=== PATIENT | female | born 1935 | race Caucasian/White ===

== ENCOUNTER 2022-11-26 23:59 | Observation (INO) | payer MEDICARE, SELFPAY ==
[2022-11-27] VITALS (31 sets, daily range): BP systolic 151–211; BP diastolic 80–141; PULSE 70–101; RESP 20–28; TEMP 36.7–36.9; O2SAT 90–100; BMI 22.8; BMI 23.1
--- NOTE | 2022-11-27 01:00 | XR_ITS ---
Patient: JESSY HOLMAN Facility:?[facility] Patient ID:[id number] Site Patient ID:?[id number] Study:?XRay-Chest PA AND lATERAL-11/27/2022 2:09:42 AM Ordering Physician:Radha Garibay Final Report: INDICATION: Shortness of breath TECHNIQUE: Chest radiograph 2 views COMPARISON: None FINDINGS: Mediastinum: A small to moderate sliding type gastric hiatal hernia (type IV) is present with an air-fluid level. The heart silhouette is normal in size and morphology. Lung: Both lungs are unremarkable in appearance. No sign of pleural effusion seen. No pneumothorax is identified. Bone and Soft tissue: Unremarkable for age. IMPRESSIONS: 1. No acute cardiopulmonary disease is seen. 2. A small to moderate sliding type gastric hiatal hernia (type IV) is present with an air-fluid level. Dictated by Chaz Menchaca MD @ 11/27/2022 2:14:02 AM Dictated by: Chaz Menchaca MD @ 11/27/2022 02:14:14 Signed by:?Chaz Menchaca MD @11/27/2022 2:14:14 AM (Electronic Signature)
[2022-11-27] MEDS: IPRAT-ALBUT 0.5-2.5 MG/3 ML NEB 1 NEB IH ×2 (01:51→08:35)
--- NOTE | 2022-11-27 03:31 | ED_ITS ---
HPI - SOB/Dyspnea General Date Seen: 11/27/22 Chief Complaint: Shortness of Breath/Dyspnea Stated Complaint: Shortness of Breath Time Seen by Provider: 11/27/22 00:03 Source: patient and family Mode of arrival: ambulatory History of Present Illness HPI Narrative: Patient is the 87-year-old female presents here for evaluation of shortness of breath, it has been for the last 4-6 hours, came on tonight. She her daughter who is with her, noted that she was breathing fast. They flown here from [place], to watch a granddaughter run track for [employer]. She normally is on oxygen 2 L, she is not wearing this continually day and night, this is for lung disease. She notes that she came urine because they thought they were at a lower altitude they thought they get by without the oxygen and did not bring it along. She denies any fevers chills she has no chest pain no nausea no vomiting eating and drinking otherwise well there is no leg swelling, no past history of DVTs pulmonary emboli and no significant cardiac history. MD elicited complaint: shortness of breath and cough Pertinent past history: COPD Onset (ago): hour(s) Timing: constant Severity: moderate Exacerbating factors: nothing Relieving factors: oxygen, bronchodilators and upright position Known history of: recurrent pneumonia Associated symptoms: cough Treatment prior to arrival: none Related Data Home oxygen amount: 2 liters Home Medications Medication Instructions Recorded Confirmed Blood Pressure Medication 11/27/22 UTI Prevention Medication 11/27/22 Allergies Allergy/AdvReac Type Severity Reaction Status Date / Time No Known Drug Allergies Allergy Verified 11/27/22 00:16 Review of Systems Status of ROS: Reports: 10 or more systems reviewed and unremarkable except as noted in History and below [facility] Social History Smoking Status: Never smoker Do you use any of these nicotine containing products: None Second hand tobacco smoke exposure: No How often do you have a drink containing alcohol: never AUDIT-C Alcohol total score: 0 Non-prescribed substance use: denies use Exam Narrative: Exam Narrative: Patient is seen in room 1, she is audibly wheezing, with a slightly elevated respiratory rate. Speaking to me however in full sentences, pupils are equal round react to light her TMs are normal oropharynx is normal cranial nerves 3-12 are normal, her chest shows good air entry bilaterally I do not hear any crackles, audible expiratory wheezes are noted throughout her precordium, heart sounds are distant and faint but S1-S2 is normal there is no S3-S4 clicks murmurs or gallops, abdomen is soft, there is no tenderness to palpation, no organomegaly, and bowel sounds are normal, her extremities show no pitting edema swelling, negative Homans sign she moves all extremities independently well, Const: Vital Signs, click to edit/add: Vital Signs - 24 hr 11/27/22 00:10 11/27/22 00:28 11/27/22 00:30 Temperature 98.1 F Pulse Rate 81 91 Pulse Rate [Pulse Oximeter] 89 Respiratory Rate 28 H Blood Pressure Blood Pressure [Ri ght Upper Arm] 185/110 H Pulse Oximetry 90 95 96 Oxygen Delivery Me thod Nasal Cannula Oxygen Flow Rate 2 11/27/22 00:32 11/27/22 00:45 11/27/22 01:00 Temperature Pulse Rate 88 89 79 Pulse Rate [Pulse Oximeter] Respiratory Rate Blood Pressure 166/99 H Blood Pressure [Ri ght Upper Arm] Pulse Oximetry 96 98 95 Oxygen Delivery Me thod Oxygen Flow Rate 11/27/22 01:02 11/27/22 01:15 11/27/22 01:30 Temperature Pulse Rate 83 80 78 Pulse Rate [Pulse Oximeter] Respiratory Rate Blood Pressure 175/102 H Blood Pressure [Ri ght Upper Arm] Pulse Oximetry 96 96 96 Oxygen Delivery Me thod Oxygen Flow Rate 11/27/22 01:34 11/27/22 01:48 11/27/22 01:51 Temperature Pulse Rate 82 87 81 Pulse Rate [Pulse Oximeter] Respiratory Rate Blood Pressure 211/130 H 197/108 H Blood Pressure [Ri ght Upper Arm] Pulse Oximetry 97 95 97 Oxygen Delivery Me thod Oxygen Flow Rate 11/27/22 02:00 11/27/22 02:02 11/27/22 02:15 Temperature Pulse Rate 79 78 71 Pulse Rate [Pulse Oximeter] Respiratory Rate Blood Pressure 154/141 H Blood Pressure [Ri ght Upper Arm] Pulse Oximetry 99 97 96 Oxygen Delivery Me thod Oxygen Flow Rate 11/27/22 02:30 11/27/22 02:32 11/27/22 02:45 Temperature Pulse Rate 70 78 80 Pulse Rate [Pulse Oximeter] Respiratory Rate Blood Pressure 151/80 H Blood Pressure [Ri ght Upper Arm] Pulse Oximetry 97 100 93 Oxygen Delivery Me thod Oxygen Flow Rate 11/27/22 03:00 11/27/22 03:01 11/27/22 03:30 Temperature Pulse Rate 86 80 75 Pulse Rate [Pulse Oximeter] Respiratory Rate Blood Pressure 182/100 H Blood Pressure [Ri ght Upper Arm] Pulse Oximetry 94 90 91 Oxygen Delivery Me thod Oxygen Flow Rate Course Course Hospital Course: I went back in and examined the patient again she was better, still has some wheezing, and on 2 L she is about 91-92%, I would recommend hospitalization now, for a COPD exacerbation she clearly is improved but given the fact she does not have oxygen here, she will need oxygen we will need to make a plan for her, nebulize treatments Solu-Medrol and Rocephin are also given to her. I did speak to from [facility] who agreed to admitted to the hospital. In talking to both the patient her daughter she is DNR DNI. Vital Signs Vital signs: Initial Vital Signs Temperature 98.1 F 11/27/22 00:10 Temperature Source Temporal Artery Scan 11/27/22 00:10 Pulse Rate 89 11/27/22 00:10 Respiratory Rate 28 H 11/27/22 00:10 Blood Pressure 185/110 H 11/27/22 00:10 Blood Pressure Mean 135 11/27/22 00:10 Blood Pressure Position Sitting 11/27/22 00:10 Pulse Oximetry 90 11/27/22 00:10 Vital Signs Temperature 98.1 F 11/27/22 00:10 Pulse Rate 89 11/27/22 00:10 Respiratory Rate 28 H 11/27/22 00:10 Blood Pressure 185/110 H 11/27/22 00:10 Pulse Oximetry 90 11/27/22 00:10 Temperature 98.1 F 11/27/22 00:10 Pulse Rate 75 11/27/22 03:30 Respiratory Rate 28 H 11/27/22 00:10 Blood Pressure 182/100 H 11/27/22 03:01 Pulse Oximetry 91 11/27/22 03:30 Oxygen Delivery Method 11/27/22 00:28 Oxygen Flow Rate 2 11/27/22 00:28 MDM - SOB/Dyspnea MDM Narrative Medical decision making narrative: Life-threatening differential diagnosis includes occluded COPD exacerbation, pulmonary edema, acute coronary syndromes, pulmonary embolism, pneumonia, and pneumothorax. Other differential diagnosis considerations include asthma, bronchitis as well as other etiologies Medical Records Attestation: I reviewed the patient's medical records. Lab Data Attestation: I reviewed the patient's lab results. Lab results narrative: I did review the lab tests, unfortunately [employer] was down, and there is were on hard copies, her total CO2 is elevated which makes me think that she has chronically CO2 retainer. Her D-dimer was elevated at 0.76, age adjusted would make her normal however. Imaging Data Chest x-ray: Attestation: I have reviewed the pertinent imaging results. My impression: No acute changes Radiologist's impression: Patient: JESSY HOLMAN Facility: [facility] Site : 1935 Study: XRay Chest PA AND lATERAL-11/27/2022 2:09:42 AM Ordering Physician: Jemma Garibay Final Report: INDICATION: Shortness of breath TECHNIQUE: Chest radiograph 2 views COMPARISON: None FINDINGS: Mediastinum: A small to moderate sliding type gastric hiatal hernia (type IV) is present with an air-fluid level. The heart silhouette is normal in size and morphology. Lung: Both lungs are unremarkable in appearance. No sign of pleural effusion seen. No pneumothorax is identified. Bone and Soft tissue: Unremarkable for age. IMPRESSIONS: 1. No acute cardiopulmonary disease is seen. 2. A small to moderate sliding type gastric hiatal hernia (type IV) is present with an air-fluid level. Dictated by Chaz Menchaca MD @ 11/27/2022 2:14:02 AM Dictated by: Chaz Menchaca MD @ 11/27/2022 02:14:14 (Electronic Signature) ECG Data ECG interpretation date: 11/27/22 Prior ECG tracings: not available for review Interpretation: Normal sinus rhythm, normal EKG with a ventricular rate of 83, QRS QT and RI intervals normal Discharge Plan Discharge Clinical Impression: Hypoxia, Acute exacerbation of chronic obstructive pulmonary disease Patient Disposition: Admitted As Inpatient Prescriptions: No Action Blood Pressure Medication Label Comments: Pt unsure of name/dosage UTI Prevention Medication Label Comments: Pt unsure of name/dosage Follow Up/Referrals: Provider,Not a Local [Primary Care Provider] -
[2022-11-27 03:42] LABS: PCR FLU A Negative PCR FLU A (Negative); PCR FLU B Negative PCR FLU B (Negative); PCR RSV Negative PCR RSV (Negative); SARS PCR* Negative SARS-CoV-2 (Negative)
[2022-11-27 03:42] LABS: Hematocrit 41.3 % (33.0-51.0); Hemoglobin* 13.2 gm/dL (12.0-16.0); Mean Corpuscular Volume 92 fL (80-100); White Blood Count* 6.47 K/uL (4.50-11.00)
[2022-11-27 03:43] LABS: Basophils Percent Auto 0.6 % (0.0-3.0); Eosinophils Percent Auto 4.5 % (0.0-7.0); Immature Granulocytes Pct Auto 0.2 %; Lymphocytes Percent Auto 24.6 % (20-44); Mean Corpuscular HGB Conc 32 gm/dL (32-36); Mean Corpuscular Hemoglobin 29 pg (26-34); Monocytes Percent Auto 9.9 % (0.0-11.0); Neutrophils Percent Auto 60.2 % (42.0-72.0); Platelet Count* 200 K/uL (140-440); Slide Review Reflex No
[2022-11-27 03:44] LABS: INR 0.96 (0.91-1.10); Partial Thromboplastin Time* 27 Seconds (23-33); Prothrombin Time 13.3 Seconds
[2022-11-27 03:48] LABS: D Dimer Quantitative* < 0.27 ug/ml (0.00-0.50)
[2022-11-27 03:50] LABS: Blood Urea Nitrogen* 23 mg/dL (7-30); Calcium* 8.8 mg/dL (8.4-10.6); Carbon Dioxide* 32 mmol/L (20-32); Chloride* 106 mmol/L (96-114); Creatinine* 0.6 mg/dL (0.5-1.5); Est. Creatinine Clearance* 34.23; Estimated Glomerular Filt Rate 87 ml/min; Glucose* 106 mg/dL (60-115); NT Pro B Type NatriureticPept* 58 pg/mL; Sodium* 141 mmol/L (135-149)
[2022-11-27] MEDS: cefTRIAXone 1 GM in 0.9 % SODIUM CHLORIDE Mini-bag 100 ML IVPB (03:50)
[2022-11-27] MEDS: ALBUTEROL SULFATE 2.5 MG/3 ML VIAL.NEB NEB (03:50)
[2022-11-27] MEDS: METHYLPREDNISOLONE SOD SUCC 62.5 MG/ML (125) 125 MG IVP (03:50)
[2022-11-27 03:51] LABS: Troponin I* < 0.01 ng/mL (0.01-0.04)
--- NOTE | 2022-11-27 03:54 | W.PC.EDHO ---
Primary Language: Preferred Language: Orientation Status: [x] Alert & Oriented [] Slight Confusion [] Known Dx Dementia Transfers By: [] Assist of 1 [x] Assist of 2 [] Lift Description of Symptoms ED Triage Present Problem Pt's daughter states pt c/o SOB and low oxygen Description that started approximately one hour ago when pt was asleep. Pt is normally on 2 LPM home oxygen via [place], but pt flew from [place] to [place] today and pt's family did not bring oxygen or pulse oximeter with. 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 Pt also has hx memory issues and antibiotic- resistant UTIs d/t buying antibiotics in [place] and not finishing the course, per daughter. Pt sats consistently 90% currently, but placed on 2 LPM for comfort. ED Triage Date of Onset of 11/27/22 Symptoms Oxygen Administration Pulse Oximetry 94 Pulse Oximetry 91 Pulse Oximetry 90 Pulse Oximetry 94 Pulse Oximetry 93 Pulse Oximetry 100 Pulse Oximetry 97 Pulse Oximetry 96 Pulse Oximetry 97 Pulse Oximetry 99 Pulse Oximetry 97 Pulse Oximetry 95 Pulse Oximetry 97 Pulse Oximetry 96 Pulse Oximetry 96 Pulse Oximetry 96 Pulse Oximetry 95 Pulse Oximetry 98 Pulse Oximetry 96 Pulse Oximetry 96 Pulse Oximetry 95 Pulse Oximetry 90 Oxygen Delivery Method Nasal Cannula Oxygen Flow Rate 2
--- NOTE | 2022-11-27 04:51 | P.IMCN_ITS ---
Date of Consult Consult date: 11/27/22 Primary Care Provider: Not a Local Provider Consult Narrative Narrative: Madison Davalos is a 87 year old female [facility] Social History Smoking Status: Never smoker Do you use any of these nicotine containing products: None Second hand tobacco smoke exposure: No How often do you have a drink containing alcohol: never AUDIT-C Alcohol total score: 0 Non-prescribed substance use: denies use Meds Home Medications and Allergies Home Medications Medication Instructions Recorded Confirmed Type folic acid .Route 11/27/22 History lisinopril 20 mg tablet mg 11/27/22 History mecobalamin (vitamin B12) 500 mcg mcg PO 11/27/22 History chewable tablet melatonin 1 mg tablet 1 mg PO DAILY 11/27/22 11/27/22 History mirabegron 25 mg tablet,extended mg PO 11/27/22 History release 24 hr (Myrbetriq) olopatadine 0.1 % eye drops drp 11/27/22 History Allergies Allergy/AdvReac Type Severity Reaction Status Date / Time No Known Drug Allergies Allergy Verified 11/27/22 00:16 Exam Const: Vital Signs, click to edit/add: Vital Signs - 24 hr 11/27/22 00:10 11/27/22 00:28 11/27/22 00:30 Temperature 98.1 F Pulse Rate 81 91 Pulse Rate [Pulse Oximeter] 89 Respiratory Rate 28 H Blood Pressure Blood Pressure [Ri ght Upper Arm] 185/110 H Pulse Oximetry 90 95 96 Oxygen Delivery Me thod Nasal Cannula Oxygen Flow Rate 2 11/27/22 00:32 11/27/22 00:45 11/27/22 01:00 Temperature Pulse Rate 88 89 79 Pulse Rate [Pulse Oximeter] Respiratory Rate Blood Pressure 166/99 H Blood Pressure [Ri ght Upper Arm] Pulse Oximetry 96 98 95 Oxygen Delivery Me thod Oxygen Flow Rate 11/27/22 01:02 11/27/22 01:15 11/27/22 01:30 Temperature Pulse Rate 83 80 78 Pulse Rate [Pulse Oximeter] Respiratory Rate Blood Pressure 175/102 H Blood Pressure [Ri ght Upper Arm] Pulse Oximetry 96 96 96 Oxygen Delivery Me thod Oxygen Flow Rate 11/27/22 01:34 11/27/22 01:48 11/27/22 01:51 Temperature Pulse Rate 82 87 81 Pulse Rate [Pulse Oximeter] Respiratory Rate Blood Pressure 211/130 H 197/108 H Blood Pressure [Ri ght Upper Arm] Pulse Oximetry 97 95 97 Oxygen Delivery Me thod Oxygen Flow Rate 11/27/22 02:00 11/27/22 02:02 11/27/22 02:15 Temperature Pulse Rate 79 78 71 Pulse Rate [Pulse Oximeter] Respiratory Rate Blood Pressure 154/141 H Blood Pressure [Ri ght Upper Arm] Pulse Oximetry 99 97 96 Oxygen Delivery Me thod Oxygen Flow Rate 11/27/22 02:30 11/27/22 02:32 11/27/22 02:45 Temperature Pulse Rate 70 78 80 Pulse Rate [Pulse Oximeter] Respiratory Rate Blood Pressure 151/80 H Blood Pressure [Ri ght Upper Arm] Pulse Oximetry 97 100 93 Oxygen Delivery Me thod Oxygen Flow Rate 11/27/22 03:00 11/27/22 03:01 11/27/22 03:30 Temperature Pulse Rate 86 80 75 Pulse Rate [Pulse Oximeter] Respiratory Rate Blood Pressure 182/100 H Blood Pressure [Ri ght Upper Arm] Pulse Oximetry 94 90 91 Oxygen Delivery Me thod Oxygen Flow Rate 11/27/22 03:49 11/27/22 01:16 11/27/22 01:16 Temperature Pulse Rate 80 Pulse Rate [Pulse Oximeter] Respiratory Rate 24 Blood Pressure Blood Pressure [Ri ght Upper Arm] Pulse Oximetry 94 91 91 Oxygen Delivery Me thod Nasal Cannula Oxygen Flow Rate 2 11/27/22 04:00 Temperature Pulse Rate 77 Pulse Rate [Pulse Oximeter] Respiratory Rate Blood Pressure Blood Pressure [Ri ght Upper Arm] Pulse Oximetry 99 Oxygen Delivery Me thod Oxygen Flow Rate Labs Labs: Short CBC 11/27/22 Range/Units 01:00 WBC 6.47 (4.50-11.00) K/uL Hgb 13.2 (12.0-16.0) gm/dL Hct 41.3 (33.0-51.0) % Plt Count 200 (140-440) K/uL BMP 11/27/22 01:00 Sodium 141 Potassium 4.0 Chloride 106 Carbon Dioxide 32 BUN 23 Creatinine 0.6 Glucose 106 Calcium 8.8 Cardiac Enzymes 11/27/22 Range/Units 01:00 Troponin I < 0.01 L (0.01-0.04) ng/mL Assessment and Plan Assessment and plan (1) Hypoxia: Status: Acute (2) Acute exacerbation of chronic obstructive pulmonary disease: Status: Acute Plan [facility] Hospitalist e[facility]ospital[facility] was contacted with request of consultation on Madison davalos for admission support Chief complaint: Shortness of breath HPI:87-year-old female with history of memory issues and COPD requiring 2 L of oxygen 08/05 who is visiting [place] for her granddaughter's school event. The details of COPD are not clear whether it is emphysema versus chronic bronchitis are bronchiectasis. She used to have recurrent pneumonias in the past. While moving from [place] to [place] she did not bring her oxygen as she thought she was moving from high altitude to a lower altitude. No fever or chills reported. She has been outdoor and it is cold outside although she did not stay in the cold for a long time. There is no nausea or vomiting. No fever or chills reported. No previous history of DVT, PE or any recent leg swelling. She does not use any inhalers currently. Upon presentation she was hypertensive, afebrile, requiring up to 2 L nasal cannula oxygen. WBCs did not show any elevated white count. D-dimers were normal. Troponin negative. BNP negative. Electrolytes normal. COVID RSV and influenza negative. EKG with normal sinus rhythm without acute ST-T wave changes concerning for ischemia. Chest x-ray without acute cardiopulmonary disease. Small to moderate sliding- type gastric hiatal hernia. Patient seems comfortable to me and denies any specific complaints. Most of the history is discussed with her daughter Alethea. In the ER she was given ceftriaxone, DuoNebs and Solu-Medrol. Home Medications: see EMR Pertinent Medical History: See EMR Pertinent Social History: See EMR Exam (performed via interactive video with assistance of bedside nurse; ): General: alert, cooperative, no acute distress HEENT: oral mucosa pink and moist without erythema Lungs: Scattered wheezes in bilateral lung mackenzie more on the right than left CV: regular rate and rhythm without loud murmur rub or gallop Ext: no pitting edema noted Skin: no rashes, bruises or lesions. Neuro:[alert, oriented x2, facial muscles grossly intact, moves all extremities without any significant focal deficit appreciated by nurse Labs and imaging were reviewed Assessment and Plan: Acute on chronic hypoxic respiratory failure ? COPD history with exacerbation Excessive wheezing Hypertension Influenza COVID and RSV negative. Chest x-ray reviewed. Continue with prednisone 40 mg daily. Ceftriaxone and Zithromax for COPD exacerbation. Oxygen support. Incentive spirometry. DuoNebs as needed. Continue lisinopril for hypertension. DVT prophylaxis: Lovenox, SCDs CODE STATUS: DNR/DNI IV fluids: None Diet: Regular Thank you for including [facility] in the patients care. This service is available for further assistance as requested by your care team by calling [phone].
[2022-11-27] MEDS: AZITHROMYCIN 250 MG TABLET 500 MG PO (05:04)
--- NOTE | 2022-11-27 05:37 | PC.NURSE ---
Admission@04--: Pt walked from w/c in [facility] to scale/br/bed without any dyspnea noted or stated with oxygen@2lpm via nc, oximetry upper 90s thus decreased to 1lpm now 93-95%, encouraged tcdb. Patient noted to have issues with memory/forgetful when recalling what state she's currently in by stating [place], and repeated 4x if she has to wear the pulse oximetry, otherwise pleasant/following commands, bed alarm on.
[2022-11-27] MEDS: predniSONE 20 MG TABLET 40 MG PO (08:35)
[2022-11-27] MEDS: SODIUM CHLORIDE 0.9 % (FLUSH) 10 ML SYRINGE 5 ML IVF (08:36)
[2022-11-27] MEDS: lisinopriL 20 MG TABLET PO (09:43)
--- NOTE | 2022-11-27 10:09 | RESP.RT ---
Patient is currently on room air and able to keep SAT at 94% with deep breathing exercises. Her SAT does drift down to 89-90% and is needed to be reminded to take deep breaths. She does well with the Nebs and should continue to use them.
--- NOTE | 2022-11-27 12:02 | PC.NURSE ---
Discharge: Patient pleasant, cooperative, and forgetful. Patient vitally stable, lungs with course crackles/expiratory wheezes, BS WNL, IV removed, catheter intact. Patient on 1 L of oxygen with sats in the low 90's. Patient 1 assist, walker, gb. Patient's daughter signed belongings sheet and discharge form. Patient left the floor by her own wheelchair with daughter, and belongings at 1158. To their flight home to [place].
--- NOTE | 2022-11-27 15:44 | PM.DS1 ---
DS: Providers Provider Time Seen by Provider: 10:00 Date Seen: 11/27/22 Date of admission: 11/27/22 04:12 Primary care physician: Not a Local Provider Admitting Clinician: Phoenix Easton MD Attending Physician on discharge: Nik Fontana MD Date of Discharge: 11/27/22 DS: Diagnosis Discharge Diagnosis (1) Hypoxia: Status: Acute (2) Acute exacerbation of chronic obstructive pulmonary disease: Status: Acute DS: Summary Hospital Course Hospital Course: 87-year-old woman from [place] is visiting her granddaughter here in [place], [place], with her daughter. Patient resides in a memory care unit in an assisted living setting with her . Ordinarily she utilizes oxygen at 1-2 L per minute via nasal cannula at bedtime. Does not ordinarily use oxygen during the day. Was doing well in her usual state of health throughout the day yesterday while attending in indoor track meet to watch her granddaughter run of 3 clonidine raise. All was well. Went back to the hotel room. When getting ready to go to bed she became more tachypneic. Her daughter who stayed in the hotel room with her brought into the emergency department for further assessment. Patient had mild hypoxemic respiratory failure when assessed emergency department. Low-flow oxygen at 1-2 liters/minute improved her saturations to the low to mid 90s. She was started on corticosteroids for COPD exacerbation. She did well overnight. Throughout this morning she has not required oxygen supplementation, and her oxygen saturations have maintained between 90 and 92% at rest and actually improved with any activity. She worked with our respiratory therapist throughout the morning. No need for her to require a portable oxygen concentrator for her travels back to [place] all today. Patient is discharged home with her daughter attending her. She will travel via airplane from [place] back to [place] later today. Status at Discharge Overall status at discharge: patient is back to baseline Time Spent with Patient Time attestation: Total time spent providing and/or coordinating discharge services: Time spent: Greater than 30 minutes Exam Narrative: Exam Narrative: Alert, oriented to self, place, time, situation. Friendly, cooperative, articulate. Mood and affect are congruent. Neck is supple. Midline trachea. Not utilizing accessory muscles of respiration. Fine end inspiratory rales bibasilarly, chronic. No wheezing or rhonchi. Heart tones with regular rhythm, normal S1-S2. Abdomen with active bowel sounds, soft, nontender. Independent transfer, station, gait. Const: Vital Signs, click to edit/add: Vital Signs - 24 hr 11/27/22 00:10 11/27/22 00:28 11/27/22 00:30 Temperature 98.1 F Pulse Rate 81 91 Pulse Rate [Left P ulse Oximeter] Pulse Rate [Pulse Oximeter] 89 Respiratory Rate 28 H Blood Pressure Blood Pressure [Le ft Arm] Blood Pressure [Ri ght Arm] Blood Pressure [Ri ght Upper Arm] 185/110 H Pulse Oximetry 90 95 96 Oxygen Delivery Me thod Nasal Cannula Oxygen Flow Rate 2 11/27/22 00:32 11/27/22 00:45 11/27/22 01:00 Temperature Pulse Rate 88 89 79 Pulse Rate [Left P ulse Oximeter] Pulse Rate [Pulse Oximeter] Respiratory Rate Blood Pressure 166/99 H Blood Pressure [Le ft Arm] Blood Pressure [Ri ght Arm] Blood Pressure [Ri ght Upper Arm] Pulse Oximetry 96 98 95 Oxygen Delivery Me thod Oxygen Flow Rate 11/27/22 01:02 11/27/22 01:15 11/27/22 01:30 Temperature Pulse Rate 83 80 78 Pulse Rate [Left P ulse Oximeter] Pulse Rate [Pulse Oximeter] Respiratory Rate Blood Pressure 175/102 H Blood Pressure [Le ft Arm] Blood Pressure [Ri ght Arm] Blood Pressure [Ri ght Upper Arm] Pulse Oximetry 96 96 96 Oxygen Delivery Me thod Oxygen Flow Rate 11/27/22 01:34 11/27/22 01:48 11/27/22 01:51 Temperature Pulse Rate 82 87 81 Pulse Rate [Left P ulse Oximeter] Pulse Rate [Pulse Oximeter] Respiratory Rate Blood Pressure 211/130 H 197/108 H Blood Pressure [Le ft Arm] Blood Pressure [Ri ght Arm] Blood Pressure [Ri ght Upper Arm] Pulse Oximetry 97 95 97 Oxygen Delivery Me thod Oxygen Flow Rate 11/27/22 02:00 11/27/22 02:02 11/27/22 02:15 Temperature Pulse Rate 79 78 71 Pulse Rate [Left P ulse Oximeter] Pulse Rate [Pulse Oximeter] Respiratory Rate Blood Pressure 154/141 H Blood Pressure [Le ft Arm] Blood Pressure [Ri ght Arm] Blood Pressure [Ri ght Upper Arm] Pulse Oximetry 99 97 96 Oxygen Delivery Me thod Oxygen Flow Rate 11/27/22 02:30 11/27/22 02:32 11/27/22 02:45 Temperature Pulse Rate 70 78 80 Pulse Rate [Left P ulse Oximeter] Pulse Rate [Pulse Oximeter] Respiratory Rate Blood Pressure 151/80 H Blood Pressure [Le ft Arm] Blood Pressure [Ri ght Arm] Blood Pressure [Ri ght Upper Arm] Pulse Oximetry 97 100 93 Oxygen Delivery Me thod Oxygen Flow Rate 11/27/22 03:00 11/27/22 03:01 11/27/22 03:30 Temperature Pulse Rate 86 80 75 Pulse Rate [Left P ulse Oximeter] Pulse Rate [Pulse Oximeter] Respiratory Rate Blood Pressure 182/100 H Blood Pressure [Le ft Arm] Blood Pressure [Ri ght Arm] Blood Pressure [Ri ght Upper Arm] Pulse Oximetry 94 90 91 Oxygen Delivery Me thod Oxygen Flow Rate 11/27/22 03:49 11/27/22 01:16 11/27/22 01:16 Temperature Pulse Rate 80 Pulse Rate [Left P ulse Oximeter] Pulse Rate [Pulse Oximeter] Respiratory Rate 24 Blood Pressure Blood Pressure [Le ft Arm] Blood Pressure [Ri ght Arm] Blood Pressure [Ri ght Upper Arm] Pulse Oximetry 94 91 91 Oxygen Delivery Me thod Nasal Cannula Oxygen Flow Rate 2 11/27/22 04:00 11/27/22 05:33 11/27/22 04:17 Temperature 98.1 F Pulse Rate 77 Pulse Rate [Left P ulse Oximeter] 82 Pulse Rate [Pulse Oximeter] Respiratory Rate 20 Blood Pressure Blood Pressure [Le ft Arm] 175/95 H Blood Pressure [Ri ght Arm] Blood Pressure [Ri ght Upper Arm] Pulse Oximetry 99 95 94 Oxygen Delivery Me thod Nasal Cannula Nasal Cannula Oxygen Flow Rate 1 1 11/27/22 05:44 11/27/22 06:15 11/27/22 07:00 Temperature 98.4 F Pulse Rate Pulse Rate [Left P ulse Oximeter] 89 Pulse Rate [Pulse Oximeter] Respiratory Rate 20 22 Blood Pressure Blood Pressure [Le ft Arm] 167/87 H Blood Pressure [Ri ght Arm] Blood Pressure [Ri ght Upper Arm] Pulse Oximetry 93 90 94 Oxygen Delivery Me thod Room Air Nasal Cannula Oxygen Flow Rate 1 11/27/22 07:00 11/27/22 07:00 11/27/22 11:16 Temperature 98.4 F Pulse Rate 77 Pulse Rate [Left P ulse Oximeter] 89 Pulse Rate [Pulse Oximeter] Respiratory Rate 22 22 22 Blood Pressure 182/100 H Blood Pressure [Le ft Arm] Blood Pressure [Ri ght Arm] Blood Pressure [Ri ght Upper Arm] Pulse Oximetry 94 Oxygen Delivery Me thod Nasal Cannula Oxygen Flow Rate 1 11/27/22 11:00 Temperature 98.4 F Pulse Rate Pulse Rate [Left P ulse Oximeter] 101 H Pulse Rate [Pulse Oximeter] Respiratory Rate 26 H Blood Pressure Blood Pressure [Le ft Arm] Blood Pressure [Ri ght Arm] 164/83 H Blood Pressure [Ri ght Upper Arm] Pulse Oximetry 92 Oxygen Delivery Me thod Nasal Cannula Oxygen Flow Rate 1 DS: Data Data Completed and Pending Labs on day of discharge: Labs from last 24 hours 11/27/22 11/27/22 11/27/22 03:38 01:00 01:00 WBC RBC Hgb Hct MCV MCH MCHC Plt Count Neut % (Auto) Lymph % (Auto) [place] % (Auto) Eos % (Auto) Baso % (Auto) Neut # (Auto) Lymph # (Auto) [place] # (Auto) Eos # (Auto) Baso # (Auto) INR 0.96 APTT 27 D-Dimer Quant (PE/DVT) < 0.27 Sodium 141 Potassium 4.0 Chloride 106 Carbon Dioxide 32 BUN 23 Creatinine 0.6 Estimated Creat Clear 34.23 Estimated GFR 87 Glucose 106 Calcium 8.8 Troponin I < 0.01 L NT-Pro-B Natriuret Pep 58 SARS-CoV-2 (PCR) Negative SARS-CoV-2 Influenza Type A (PCR) Negative PCR FLU A Influenza Type B (PCR) Negative PCR FLU B RSV (PCR) Negative PCR RSV 11/27/22 01:00 WBC 6.47 RBC 4.50 Hgb 13.2 Hct 41.3 MCV 92 MCH 29 MCHC 32 Plt Count 200 Neut % (Auto) 60.2 Lymph % (Auto) 24.6 [place] % (Auto) 9.9 Eos % (Auto) 4.5 Baso % (Auto) 0.6 Neut # (Auto) 3.90 Lymph # (Auto) 1.60 [place] # (Auto) 0.60 Eos # (Auto) 0.30 Baso # (Auto) 0.00 INR APTT D-Dimer Quant (PE/DVT) Sodium Potassium Chloride Carbon Dioxide BUN Creatinine Estimated Creat Clear Estimated GFR Glucose Calcium Troponin I NT-Pro-B Natriuret Pep SARS-CoV-2 (PCR) Influenza Type A (PCR) Influenza Type B (PCR) RSV (PCR) Discharge Plan Discharge Disposition: Home, Self-Care Date of Admission: 11/27/22 04:12 Attending Provider on Discharge: Nik Fontana Primary Care Provider: Provider,Not a Local Condition: Improved Anticipated Discharge Date/Time: 11/27/22 11:30 Discharge Medications: New prednisone 20 mg Tablet 40 mg PO DAILYWM 4 Days Qty: 8 0RF azithromycin 250 mg tablet 250 mg PO DAILY 4 Days Qty: 4 0RF Continued lisinopril 20 mg tablet 20 mg PO DAILY olopatadine 0.1 % drops 1 drp ophthalmic (eye) BID Myrbetriq 25 mg tablet extended release 24 hr 25 mg PO HS melatonin 1 mg tablet 1 mg PO HS folic acid 1 mg tablet 1 mg PO DAILY cyanocobalamin (vitamin B-12) 500 mcg tablet 500 mcg PO DAILY Discharge Orders: Discharge Order (Routine); Ordered 11/27/22 Ordered By: Nik Fontana Patient Education: Prednisone (By mouth), Azithromycin (By mouth), Air Travel With Oxygen (GEN), Hypoxia (GEN) Additional Instructions: 1. Follow-up with primary care physician in 3-7 days; 2. Return to clinic or hospital sooner if needed. Activity Level: Activity as Tolerated Discharge Diet: Regular Follow Up Appointments: Provider,Not a Local [Primary Care Provider] - (Patient needs to call and schedule a follow up appointment with primary care physician for 3-7 days after discharge.) Forms: [employer] Info Instructions
--- NOTE | 2022-11-27 15:52 | P.IMHP_ITS ---
Hospitalist- H&P: HPI History of Present Illness Time Seen by Provider: 08:30 Date Seen: 11/27/22 Chief complaint: Shortness of Breath Narrative: Madison Davalos is a 87-year-old woman from [place] visiting her granddaughter here in [place], [place], with her daughter.? Patient resides in a memory care unit in an assisted living setting with her .? Ordinarily she utilizes oxygen at 1-2 L per minute via nasal cannula at bedtime.? Does not ordinarily use oxygen during the day.? Was doing well in her usual state of health throughout the day yesterday while attending in indoor track meet to watch her granddaughter run a 3 killometer race.? All was well.? Went back to the hotel room.? When getting ready to go to bed she became more tachypneic.? Her daughter, who stayed in the hotel room with her, brought into the emergency department for further assessment.? Patient had mild hypoxemic respiratory failure when assessed emergency department.? Low-flow oxygen at 1-2 liters/minute improved her saturations to the low to mid 90s.? She was started on corticosteroids for COPD exacerbation. Patient is admitted for additional monitoring and intervention as warranted. Review of Systems Status of ROS: Reports: 10 or more systems reviewed and unremarkable except as noted in History and below Narrative: Does not ordinarily use oxygen throughout the day. Does utilize oxygen at 1-2 liters/minute via nasal cannula at bedtime. When making the trip from [place] to [place] she and her daughter thought that they did not need to bring the oxygen with her because of lower altitude in [place] compared to [place]. Evidently they live about 7,000 feet above sea level. No recent illness. Denies chest heaviness, pressure, tightness, or pain. When I am seeing her this morning she states she has no more dyspnea at rest. Acknowledges baseline dyspnea with exertion. Denies paroxysmal nocturnal dyspnea or orthopnea. Acknowledges baseline sense of weakness if she walks too far. Ordinarily uses a wheelchair for longer distances. Denies syncope or near-syncope. Denies nausea or vomiting. Denies palpitations or chest fluttering. Denies dysuria, urgency, frequency, hematuria. Denies diarrhea. Receives all of her healthcare in [place] where she resides. She is satisfied with the healthcare she receives. Unhesitatingly states she desires comfort measures only in the event of cardiopulmonary demise. Designates her daughter as her power of tank builder for health should that be required. [facility] Medical History Chronic hypoxemic respiratory failure Chronic obstructive pulmonary disease Cognitive impairment Essential hypertension Vitamin B12 deficiency Social History Smoking Status: Never smoker Do you use any of these nicotine containing products: None Second hand tobacco smoke exposure: No How often do you have a drink containing alcohol: never AUDIT-C Alcohol total score: 0 Non-prescribed substance use: denies use Caffeine: Yes Meds Home Medications and Allergies Home Medications Medication Instructions Recorded Confirmed Type cyanocobalamin (vitamin B-12) 500 500 mcg PO DAILY 11/27/22 11/27/22 History mcg tablet folic acid 1 mg tablet 1 mg PO DAILY 11/27/22 11/27/22 History lisinopril 20 mg tablet 20 mg PO DAILY 11/27/22 11/27/22 History melatonin 1 mg tablet 1 mg PO HS 11/27/22 11/27/22 History mirabegron 25 mg tablet,extended 25 mg PO HS 11/27/22 11/27/22 History release 24 hr (Myrbetriq) olopatadine 0.1 % eye drops 1 drp ophthalmic (eye) BID 11/27/22 11/27/22 History Allergies Allergy/AdvReac Type Severity Reaction Status Date / Time No Known Drug Allergies Allergy Verified 11/27/22 00:16 Exam Narrative: Exam Narrative: Appears comfortable and in no acute distress when I see her this morning. Initially receiving oxygen supplementation via nasal cannula at a rate of 2 liters/minute. We removed this and monitor her on room air. On room air she is able to maintain her saturations between 90 and 92% at rest. With exertion her saturations improved 96%. Alert, oriented to self, place, time, situation. Friendly, cooperative, articulate. Mood and affect are congruent. Neck is supple. Kyphosis. Lungs clear to auscultation save some end inspiratory rales bibasilarly. No wheezing or rhonchi. Heart tones with regular rhythm, normal S1-S2. Abdomen with active bowel sounds, soft, nontender. Independent transfer, station, and gait. No focal motor neurologic deficits. Skin is intact. Palpable pulses upper and lower extremities. Const: Vital Signs, click to edit/add: Vital Signs - 24 hr 11/27/22 00:10 11/27/22 00:28 11/27/22 00:30 Temperature 98.1 F Pulse Rate 81 91 Pulse Rate [Left P ulse Oximeter] Pulse Rate [Pulse Oximeter] 89 Respiratory Rate 28 H Blood Pressure Blood Pressure [Le ft Arm] Blood Pressure [Ri ght Arm] Blood Pressure [Ri ght Upper Arm] 185/110 H Pulse Oximetry 90 95 96 Oxygen Delivery Me thod Nasal Cannula Oxygen Flow Rate 2 11/27/22 00:32 11/27/22 00:45 11/27/22 01:00 Temperature Pulse Rate 88 89 79 Pulse Rate [Left P ulse Oximeter] Pulse Rate [Pulse Oximeter] Respiratory Rate Blood Pressure 166/99 H Blood Pressure [Le ft Arm] Blood Pressure [Ri ght Arm] Blood Pressure [Ri ght Upper Arm] Pulse Oximetry 96 98 95 Oxygen Delivery Me thod Oxygen Flow Rate 11/27/22 01:02 11/27/22 01:15 11/27/22 01:30 Temperature Pulse Rate 83 80 78 Pulse Rate [Left P ulse Oximeter] Pulse Rate [Pulse Oximeter] Respiratory Rate Blood Pressure 175/102 H Blood Pressure [Le ft Arm] Blood Pressure [Ri ght Arm] Blood Pressure [Ri ght Upper Arm] Pulse Oximetry 96 96 96 Oxygen Delivery Me thod Oxygen Flow Rate 11/27/22 01:34 11/27/22 01:48 11/27/22 01:51 Temperature Pulse Rate 82 87 81 Pulse Rate [Left P ulse Oximeter] Pulse Rate [Pulse Oximeter] Respiratory Rate Blood Pressure 211/130 H 197/108 H Blood Pressure [Le ft Arm] Blood Pressure [Ri ght Arm] Blood Pressure [Ri ght Upper Arm] Pulse Oximetry 97 95 97 Oxygen Delivery Me thod Oxygen Flow Rate 11/27/22 02:00 11/27/22 02:02 11/27/22 02:15 Temperature Pulse Rate 79 78 71 Pulse Rate [Left P ulse Oximeter] Pulse Rate [Pulse Oximeter] Respiratory Rate Blood Pressure 154/141 H Blood Pressure [Le ft Arm] Blood Pressure [Ri ght Arm] Blood Pressure [Ri ght Upper Arm] Pulse Oximetry 99 97 96 Oxygen Delivery Me thod Oxygen Flow Rate 11/27/22 02:30 11/27/22 02:32 11/27/22 02:45 Temperature Pulse Rate 70 78 80 Pulse Rate [Left P ulse Oximeter] Pulse Rate [Pulse Oximeter] Respiratory Rate Blood Pressure 151/80 H Blood Pressure [Le ft Arm] Blood Pressure [Ri ght Arm] Blood Pressure [Ri ght Upper Arm] Pulse Oximetry 97 100 93 Oxygen Delivery Me thod Oxygen Flow Rate 11/27/22 03:00 11/27/22 03:01 11/27/22 03:30 Temperature Pulse Rate 86 80 75 Pulse Rate [Left P ulse Oximeter] Pulse Rate [Pulse Oximeter] Respiratory Rate Blood Pressure 182/100 H Blood Pressure [Le ft Arm] Blood Pressure [Ri ght Arm] Blood Pressure [Ri ght Upper Arm] Pulse Oximetry 94 90 91 Oxygen Delivery Me thod Oxygen Flow Rate 11/27/22 03:49 11/27/22 01:16 11/27/22 01:16 Temperature Pulse Rate 80 Pulse Rate [Left P ulse Oximeter] Pulse Rate [Pulse Oximeter] Respiratory Rate 24 Blood Pressure Blood Pressure [Le ft Arm] Blood Pressure [Ri ght Arm] Blood Pressure [Ri ght Upper Arm] Pulse Oximetry 94 91 91 Oxygen Delivery Me thod Nasal Cannula Oxygen Flow Rate 2 11/27/22 04:00 11/27/22 05:33 11/27/22 04:17 Temperature 98.1 F Pulse Rate 77 Pulse Rate [Left P ulse Oximeter] 82 Pulse Rate [Pulse Oximeter] Respiratory Rate 20 Blood Pressure Blood Pressure [Le ft Arm] 175/95 H Blood Pressure [Ri ght Arm] Blood Pressure [Ri ght Upper Arm] Pulse Oximetry 99 95 94 Oxygen Delivery Me thod Nasal Cannula Nasal Cannula Oxygen Flow Rate 1 1 11/27/22 05:44 11/27/22 06:15 11/27/22 07:00 Temperature 98.4 F Pulse Rate Pulse Rate [Left P ulse Oximeter] 89 Pulse Rate [Pulse Oximeter] Respiratory Rate 20 22 Blood Pressure Blood Pressure [Le ft Arm] 167/87 H Blood Pressure [Ri ght Arm] Blood Pressure [Ri ght Upper Arm] Pulse Oximetry 93 90 94 Oxygen Delivery Me thod Room Air Nasal Cannula Oxygen Flow Rate 1 11/27/22 07:00 11/27/22 07:00 11/27/22 11:16 Temperature 98.4 F Pulse Rate 77 Pulse Rate [Left P ulse Oximeter] 89 Pulse Rate [Pulse Oximeter] Respiratory Rate 22 22 22 Blood Pressure 182/100 H Blood Pressure [Le ft Arm] Blood Pressure [Ri ght Arm] Blood Pressure [Ri ght Upper Arm] Pulse Oximetry 94 Oxygen Delivery Me thod Nasal Cannula Oxygen Flow Rate 1 11/27/22 11:00 Temperature 98.4 F Pulse Rate Pulse Rate [Left P ulse Oximeter] 101 H Pulse Rate [Pulse Oximeter] Respiratory Rate 26 H Blood Pressure Blood Pressure [Le ft Arm] Blood Pressure [Ri ght Arm] 164/83 H Blood Pressure [Ri ght Upper Arm] Pulse Oximetry 92 Oxygen Delivery Me thod Nasal Cannula Oxygen Flow Rate 1 Documenting provider has reviewed patient's vital signs: yes Hospitalist - H&P: Result Labs Labs: Short CBC 11/27/22 Range/Units 01:00 WBC 6.47 (4.50-11.00) K/uL Hgb 13.2 (12.0-16.0) gm/dL Hct 41.3 (33.0-51.0) % Plt Count 200 (140-440) K/uL BMP 11/27/22 01:00 Sodium 141 Potassium 4.0 Chloride 106 Carbon Dioxide 32 BUN 23 Creatinine 0.6 Glucose 106 Calcium 8.8 Cardiac Enzymes 11/27/22 Range/Units 01:00 Troponin I < 0.01 L (0.01-0.04) ng/mL Assessment and Plan Assessment and plan (1) Acute exacerbation of chronic obstructive pulmonary disease: Status: Acute (2) Hypoxia: Status: Acute Plan 1. Improving substantially with oxygen supplementation and corticosteroid initiation. 2. Anticipate possible discharge later on today. May or may not need oxygen supplementation at time of discharge. Will continue with short burst of corticosteroid therapy for her at time of discharge. 3. Will need follow up with her primary care physician when she returns to [place]. 4. Discussed with patient and her daughter. They are both agreeable.
== END 2022-11-27 11:58 | disposition home or self-care (01) ==
LOC: ED 11-27 04:10 → MEDSURG 11-27 04:12
PROVIDERS: Admitting Provider Family Medicine; Emergency Provider Family Medicine; Visit Provider Family Medicine
DX: J96.91 Respiratory failure, unspecified with hypoxia (principal); J44.1 Chronic obstructive pulmonary disease with (acute) exacerbation; K44.9 Diaphragmatic hernia without obstruction or gangrene; Z87.01 Personal history of pneumonia (recurrent); R79.89 Other specified abnormal findings of blood chemistry; G31.84 Mild cognitive impairment of uncertain or unknown etiology; Z20.822 Contact with and (suspected) exposure to COVID-19; Z66 Do not resuscitate; I10 Essential (primary) hypertension; R05.9 Cough, unspecified
CPT/HCPCS: 36415; 71046; 80048; 83880; 84484; 85025; 85379; 85610; 85730; 87502; 87634; 87635; 93005; 94640; 94761; 96365; 96375; 99199; 99285; A9270; G0378; J0696; J2930; J7512